=== PATIENT | female | born 2000 | race Caucasian/White ===

== ENCOUNTER 2021-12-07 18:42 | Emergency (ER) | payer OTHER ==
[~2021-12-07] VITALS: Ht 162.6 cm; Wt 81.8 kg
[2021-12-07] MEDS ORDERED: METF-283 PO (19:12)
[2021-12-07] MEDS ORDERED: INSLAN SQ (19:12)
[2021-12-07] MEDS ORDERED: INSNPH SQ (19:12)
[2021-12-07] MEDS ORDERED: TACR5CAP21 PO (19:13)
[2021-12-07] MEDS ORDERED: GLIM4 PO (19:13)
[2021-12-07 21:00] VITALS: BP 129/70
== END 2021-12-07 23:08 | disposition home or self-care (01) ==
LOC: EMS 18:43
DX: E10.22 Type 1 diabetes mellitus with diabetic chronic kidney disease (principal); N18.6 End stage renal disease; Z79.4 Long term (current) use of insulin; Z94.0 Kidney transplant status; Z91.018 Allergy to other foods
CPT/HCPCS: 99283